=== PATIENT | female | born 1975 | race Caucasian/White ===

== ENCOUNTER → 2017-06-01 | Outpatient (CLI) | payer BC ==
[~2017-06-01] MED LIST: CYANOCOBALAM1000 MCG PO; EFFEXOR37.5 MG PO; LOESTRIN FE 1.1 EACH PO; MOTRIN600 MG PO; NORCO 5/3251 TABLET PO; PROPRANOLOL HCL20 MG PO; VALIUM5 MG PO; VITAMIN D31000 UNIT PO
[2017-06-01 17:31] LABS: APPEARANCE CLEAR, COLORLESS; CSF EOSINOPHILS 0 % (0-25); MONO RAW COUNT 1; MONONUCLEAR WBC'S 100 % (50-90); POLYNUCLEAR WBC'S 0 % (0-3); RED CELL AREA COUNTED 18; RED CELL COUNT 2 /MM^3 (0-1); RED CELL DILUTION 1; WBC AREA COUNTED 18; WBC DILUTION 1; WHITE CELL COUNT 1 /MM^3 (0-5); WHITE CELL RAW COUNT 1
== END | disposition home or self-care (01) ==
LOC: RAD 14:41
PROVIDERS: Internal Medicine
PROC: 009U3ZZ Drainage of Spinal Canal, Percutaneous Approach (ICD-10-PCS; principal; 2017-06-01)
DX: E23.6 Other disorders of pituitary gland (principal)
CPT/HCPCS: 62270; 77003; 82945; 84157; 87070; 87205; 88108; 89051

== ENCOUNTER 2017-09-24 12:29 | Emergency (ER) | payer BC ==
[~2017-09-24] VITALS: Ht 165.1 cm; Wt 88.5 kg
[2017-09-24 15:43] LABS: EOSINOPHIL (%) 0.8 % (0-5); EOSINOPHIL COUNT 0.1 K/uL (0-0.3); HEMATOCRIT 40.5 % (36.0-46.0); IMMATURE GRANULOCYTE (%) 0.2 % (0.0-0.7); INSTRUMENT ABS NEUTROPHIL CT 3.6 K/uL; LYMPHOCYTE COUNT 2.4 K/uL (1.0-2.8); MCH 30.6 PG (29.0-34.0); MCHC 35.3 G/DL (30.0-36.0); MCV 86.7 FL (83-99); MEAN PLAT.VOLUME 9.1 uM^3 (9.5-12.4); MONOCYTE COUNT 0.5 K/uL (0-0.8); NEUTROPHIL (%) 54.8 % (45-76); NEUTROPHIL COUNT 3.6 K/uL (1.8-6.4); PLATELET COUNT 293 K/uL (156-360); RBC DIS.WIDTH-CV 11.8 % (11.8-14.6); RBC DIS.WIDTH-SD 37.3 % (39-53); RED BLOOD COUNT 4.67 M/uL (3.80-5.20); WHITE BLOOD COUNT 6.6 K/uL (4.1-10.2)
[2017-09-24 16:17] LABS: ANION GAP 12 MEQ/L (2-14); CHLORIDE 96 MEQ/L (99-109); GFR ESTIMATE (CALCULATED) > 59 mL/min/; GLUCOSE 101 mg/dL (70-99); SAMPLE HEMOLYSIS CHECK 0; SAMPLE ICTERIC CHECK 0; SAMPLE LIPEMIA CHECK 0; SERUM ETHYL ALCOHOL < 10 mg/dL; SODIUM 132 MEQ/L (136-147); UREA NITROGEN (BUN) 11 mg/dL (9-23)
[2017-09-24] MEDS ORDERED: XANAX0.5 MG PO (16:22)
[2017-09-24 16:45] VITALS: BP 146/99
== END 2017-09-24 17:02 | disposition home or self-care (01) ==
LOC: EME 12:29
PROVIDERS: Emergency Medicine
DX: F41.1 Generalized anxiety disorder (principal); Z96.22 Myringotomy tube(s) status; Z88.1 Allergy status to other antibiotic agents
CPT/HCPCS: 80048; 81003; 85025; 90839; 99281; 99284; G0480